=== PATIENT | female | born 1985 | race Caucasian/White ===

== ENCOUNTER 2018-07-21 14:07 | Outpatient (REF) | payer BC, SELFPAY | END 2018-07-21 14:27 | LOC: NCHCN 14:07 | PROVIDERS: PCP Physician Assistant Medical; Visit Provider Specialist/Technologist Athletic Trainer | DX: N39.0 Urinary tract infection, site not specified (principal) | CPT/HCPCS: 87086 ==

== ENCOUNTER 2019-07-11 12:59 | Outpatient (REF) | payer BC, SELFPAY ==
--- NOTE | 2019-07-11 10:30 | PAPFT_PTH ---
PATIENT: Abimbola Callahan LOC: [facility] U#:[id number] AGE/SX: 33/F ROOM: RE07/11/[address]: Niki Mcknight : 1985 BED: DIS: 07/11/2019 SPEC #: [id number] RECD: 07/12/19 12:51 STATUS: MARIO REAkbar #: [id number] INOCENCIO: 07/11/19 10:[address]: Niki Mcknight DEPT: [facility] Cytology RECD BY: Ariela Mcneal Tissues: 1 - CX/ENDOCX FOR PAP SMEARS Procedures: PAP THIN PREP/UVM Screening HPV DNA PROBE Comments: [id number]
== END 2019-07-11 13:19 ==
LOC: NCHCN 12:59
PROVIDERS: PCP Physician Assistant Medical; Visit Provider Physician Assistant Medical
DX: Z12.4 Encounter for screening for malignant neoplasm of cervix (principal); Z11.51 Encounter for screening for human papillomavirus (HPV)
CPT/HCPCS: 88142; 87624

== ENCOUNTER 2021-07-10 18:52 | Outpatient (REF) | payer BC, SELFPAY ==
[2021-07-10 20:40] LABS: Abs Immature Grans 0.02 10^3/uL (0.0-0.06); Absolute Basophil Count 0.04 10^3/uL (0.0-0.2); Absolute Eosinophil Count 0.17 10^3/uL (0.0-0.7); Absolute Lymphocyte Count 1.85 10^3/uL (1.2-3.4); Absolute Monocyte Count 0.56 10^3/uL (0.1-0.8); Absolute Neutrophil Count 3.77 10^3/uL (1.2-6.7); Basophils % 0.6; Eosinophils % 2.7; HCT 36.3 % (36.0-46.0); HGB 12.1 g/dL (11.2-15.7); Immature Grans % 0.3; Lymphocytes % 28.9; MCH 29.8 pg (27.0-33.0); MCHC 33.3 % (32.0-36.0); MCV 89.4 fL (80-95); MPV 10.8 fL (8.0-11.0); Monocytes % 8.7; Neutrophils % 58.8; Nucleated RBC 0 %; Platelet Count 232 10^3/uL (130-400); RBC 4.06 10^6/uL (3.93-5.22); RDW 11.9 % (11.7-14.6); WBC 6.41 10^3/uL (4.4-10.8)
[2021-07-10 20:47] LABS: ALT 19 U/L (14-59); AST 17 U/L (15-37); Alkaline Phosphatase 80 U/L (46-116); Anion Gap 11.1 mmol/L (3-11); BUN 14 mg/dL (7-18); Bilirubin, Total 0.3 mg/dL (0.2-1.0); CO2 23.9 mmol/L (21.0-32.0); CREATININE 0.7 mg/dL (0.55-1.02); Calcium 8.7 mg/dL (8.5-10.1); Chloride 104 mmol/L (98-107); Glucose 79 mg/dL (74-106); Potassium 4.1 mmol/L (3.5-5.1); Sodium 139 mmol/L (136-145); Total Protein 7.1 g/dL (6.4-8.2)
== END 2021-07-10 18:53 | disposition home or self-care (01) ==
LOC: NCHCN 18:52
PROVIDERS: PCP Physician Assistant Medical; Visit Provider Physician Assistant Medical
DX: R10.31 Right lower quadrant pain (principal)
CPT/HCPCS: 80053; 85025

== ENCOUNTER 2021-10-09 01:08 | Outpatient (CLI) | payer BC, SELFPAY ==
[2021-10-09] MEDS: Breeza Beverage 473 ML BTL PO (12:32)
[2021-10-09] MEDS: Omnipaque 350 MG/ML 50 ML BTL IJ (12:32)
[2021-10-09] MEDS: Omnipaque 350 MG/ML 100 ML BTL IJ (13:55)
[2021-10-09] MEDS: Normal Saline Flush 10 ML SYR IVP (13:57)
--- NOTE | 2021-10-09 14:05 | DI.CT_ITS ---
Exam(s) CT ABDOMEN PELVIS W EXAM: CT ABDOMEN PELVIS W CLINICAL HISTORY: RLQ PAIN R10.31 TECHNIQUE: Imaging Protocol: Axial computed tomography images with coronal and sagittal reformatted images were created and reviewed CONTRAST MATERIAL: Intravenous: Omnipaque 350 Contrast volume:100 mL Oral: Yes COMPARISON: No exams were available for comparison FINDINGS: ABDOMEN: Lung Bases: There is a calcified granuloma in the lingula. Liver: Normal density. No measurable mass. Portal, Superior Mesenteric, and Splenic Veins: Unremarkable. Gallbladder and Biliary Tract: No radiodense calculus or dilation. Pancreas: Normal density, no abnormal calcifications or inflammatory process. Spleen: Normal. Adrenals: No masses seen. Kidneys: Normal size, contour and axis. There is a 3 mm nonobstructing stone in the midpole of the le ft kidney. No masses seen. Abdominal Aorta: Abdominal portion non-dilated. Bowel: No obstruction or bowel wall thickening. Appendix is unremarkable. Peritoneal Cavity: No ascites, collection or mesenteric inflammatory response. No free air. Lymph Nodes: Within normal limits. Bones: Within normal limits for the patient's age. There is a single sclerotic focus in the left yuni tabulum likely reflecting a bone island. Soft Tissues: Unremarkable. PELVIS: Bladder: Symmetric distention, no gross wall thickening. Reproductive Organs: Unremarkable as visualized. Bilateral ovarian cysts are seen. The largest is on the left and measures 2.1 x 2.0 cm. Lymph Nodes: Within normal limits. Bones: Within normal limits for the patient's age. IMPRESSION: 1. Normal appendix. 2. Left nephrolithiasis. No hydronephrosis. 3. Bilateral ovarian cysts. RADIATION DOSE DELIVERED: 622.02mGy.cm Total DLP DATA REPOSITORY: All CT scans at this facility are submitted to the National Radiology Data Registry (NRDR) Dose Index Registry (DIR) with the [employer] (ACR). RADIATION OPTIMIZATION: All CT scans at this facility use at least one of these dose optimization te chniques: automated exposure control; mA and/or kV adjustment per patient size (includes targeted exa ms where dose is matched to clinical indication); or iterative reconstruction.
== END 2021-10-09 01:28 ==
PROVIDERS: PCP Physician Assistant Medical; Visit Provider Physician Assistant Medical
DX: R10.31 Right lower quadrant pain (principal); N20.0 Calculus of kidney; N83.291 Other ovarian cyst, right side; N83.292 Other ovarian cyst, left side
CPT/HCPCS: 74177; J3490; Q9967

== ENCOUNTER 2023-04-08 14:47 | Emergency (ER) | payer OTHER, SELFPAY ==
[2023-04-08 14:48] VITALS: BP 119/87; PULSE 89; RESP 17; TEMP 36.7; O2SAT 98
--- NOTE | 2023-04-08 15:00 | DI.CT_ITS ---
Exam(s) CT ABDOMEN PELVIS W EXAM: CT ABDOMEN PELVIS W CLINICAL HISTORY: right lower abdominal pain TECHNIQUE: Imaging Protocol: Axial computed tomography images with coronal and sagittal reformatted images were created and reviewed CONTRAST MATERIAL: Intravenous: Omnipaque 350 Contrast volume:77 mL Oral: None. COMPARISON: CT CT ABDOMEN PELVIS W from 10/09/2021 FINDINGS: ABDOMEN: Lung Bases: Calcified granuloma. No focal consolidating infiltrates. Liver: Normal density. No measurable mass. Portal, Superior Mesenteric, and Splenic Veins: Unremarkable. Gallbladder and Biliary Tract: There does appear to be a stone in the gallbladder. No biliary ductal dilatation. Pancreas: Normal density, no abnormal calcifications or inflammatory process. Spleen: Normal. Adrenals: No masses seen. Kidneys: Normal size, contour and axis. There is a 2 mm calcification in the lower pole of the left k idney. No masses seen. Abdominal Aorta: Abdominal portion non-dilated. Bowel: No obstruction or bowel wall thickening. Appendix is unremarkable. There is a moderate amount of stool in the colon. Peritoneal Cavity: There is a trace amount of free fluid in the pelvis which is likely physiologic. No free air. Lymph Nodes: Within normal limits. Bones: Within normal limits for the patient's age. Soft Tissues: Unremarkable. PELVIS: Bladder: Symmetric distention, no gross wall thickening. Reproductive Organs: Unremarkable as visualized. There is a 3.4 cm left ovarian cyst. There is a 1.4 cm corpus luteal cyst. No imaging is recommended. (Calzada et al, 2020). Lymph Nodes: Within normal limits. Bones: Within normal limits for the patient's age. IMPRESSION: 1. Left nephrolithiasis no hydronephrosis. 2. Normal appendix. RADIATION DOSE DELIVERED: 595.66mGy.cm Total DLP DATA REPOSITORY: All CT scans at this facility are submitted to the National Radiology Data Registry (NRDR) Dose Index Registry (DIR) with the [employer] (ACR). RADIATION OPTIMIZATION: All CT scans at this facility use at least one of these dose optimization te chniques: automated exposure control; mA and/or kV adjustment per patient size (includes targeted exa ms where dose is matched to clinical indication); or iterative reconstruction.
--- NOTE | 2023-04-08 15:05 | ED.GENADUL_ITS ---
Discharge Plan Disposition Patient Disposition: Home Condition: Stable Discharge Details Clinical Impression: Pelvic pain Primary Care Provider: Niki Mcknight ED Provider: Jose Rivera Home Meds and New Rx's Prescriptions: Continued Daily Multiple 1 EACH tablet 1 ea PO DAILY Patient Comments: No longer taking 04/08/23 CT phenazopyridine 95 MG tablet 2 tab-cap PO TID PRN Patient Comments: No longer taking 04/08/23 CT levothyroxine 75 MCG tablet 75 mcg PO DAILY Qty: 60 1RF Patient Comments: No longer taking 04/08/23 CT Rx Instructions: 1 tab PO daily Discharge Instructions Additional Instructions: Your blood work did not show concerning findings, you do have a left sided ovarian cyst If you develop severe worsening pain, feel more ill, or have new symptoms such as difficulty breathing return to the emergency department [phone], I placed you on the follow up list as well to help with this. Medical Decision Making 37 yo female who states she has had 2 c sections and surgery to remove an ovarian cyst in the past, and has been worked up for possible endometriosis, who comes in with lower abdominal pain right greater then left since Thursday that is constant and sharp in nature. She denies fevers, chills, n/v. She arrives stable and appears in no distress. She has a soft nondistended abdomen, has tenderness in both the llq and rlq with the rlq being more tender, no guarding or rebound tenderness. Unclear etiology for her pain based on symptoms, given location of her pain will proceed with cbc, cmp, lipase as well as ct abdomen/pelvis to evaluate for appendicitis, diverticulitis, ovarian cyst. Pain has been constant since Thursday so doubt torsion. pt stable, has a left sided 3x2cm simple functional cyst, normal appendix and no other acute findings. She feels better, has right sided pain still, she does state she has a hx of endometriosis so her pain on the right side could be due to this and given no significant left sided pain doubt torsion. She is stable for d/c, will have her f/u with [facility] [employer], return precautions given Differential Diagnosis Differential Diagnosis: appendicitis, endometriosis, ovarian cyst Medical Records Medical records reviewed: Yes I reviewed the patient's medical records. Imaging Data Radiologic Study: Attestation: I personally reviewed and interpreted this imaging study as follows: Imaging: CT Scan Radiologist's impression: IMPRESSION: 1. New 3.1 x 2.7 cm simple appearing left adnexal cyst, consistent with a benign functional cyst. No further imaging is recommended. (Reference: Zheng) 2. New corpus luteal cyst within the left adnexa. 3. Normal appearing appendix. No evidence for bowel obstruction or inflammation. 4. Interval passage of a prior left renal stone. There is a residual nonobstructing 2 mm left renal stone. Lab Data Lab results reviewed: Yes I reviewed the patient's lab results. HPI General Mode of arrival: ambulatory . Date/Time Provider Initiated Documentation: 04/08/23 14:50 . Limitations to Documentation: no limitations . Information obtained by: patient . History of Present Illness 37 year old F presents to the emergency department with the chief complaint of lower abdominal pain, described as moderate, Quality is described as sharp, and is localized to the abdomen. Patient reports no radiation. Patient started experiencing this day(s) (4) and it has been constant. No relieving factors improve symptom(s), No exacerbating factors reported . Patient notes no other symptoms.; denies chest pain and fever/chills. Patient did receive the following treatments prior to arrival, NSAID Related Data Home Medications Medication Instructions Recorded Confirmed multivitamin-ferrous 1 ea PO DAILY 01/30/14 09/17/21 fumarate-folic acid 18 mg-400 mcg tablet (Daily Multiple) phenazopyridine 95 mg tablet 2 tab-cap PO TID PRN 07/04/16 09/17/21 levothyroxine 75 mcg tablet 75 mcg PO DAILY #60 tabs 07/28/17 09/17/21 Previous Rx's Medication Instructions Recorded levothyroxine 75 mcg tablet 75 mcg PO DAILY #60 tabs 07/28/17 Allergies Allergy/AdvReac Type Severity Reaction Status Date / Time venom-honey bee Allergy Severe SWELLING Unverified 04/08/23 15:40 General Stated Complaint: Abd Prob ESTELLE: 3 Review of Systems All systems reviewed & are unremarkable except as noted in HPI and below Constitutional Constitutional: Denies chills, Denies fever(s) and Denies weakness Cardiovascular Cardiovascular: Denies chest pain and Denies dyspnea Respiratory Respiratory: Denies cough and Denies dyspnea Gastrointestinal Gastrointestinal: Denies nausea and Denies vomiting Genitourinary Genitourinary: Denies dysuria Neurologic Neurologic: Denies weakness PFSH All Active Problems (Updated 04/08/23 @ 17:31 by Jose Rivera MD) Pelvic pain (Acute) Medical History Endometriosis Headache Had episode with 1st . 10/09/14 tension type headache after n/v. Rx for Ondansetron and refill of Fioricet given. Surgical History section 03/12/2011. F. Breech presentation. OVARIAN [id number] RIGHT HAND TENDON REPAIR 2001 WISDOME TEETH 2006 Social History Smoking/Tobacco Use Status: Never Smoking risk assessment performed?: Yes Alcohol Intake: never Drug use: Never Substance use type: does not use Do you feel safe at home: Yes Do you feel safe in your relationship?: Yes Exam Const General: no acute distress Orientation: alert HENMT Head: normal to inspection Ears: external ears normal General nose exam: external nose normal Mouth: moist mucous membranes Eyes General: appearance normal, both eyes and all related structures Neck Neck: normal visual inspection Resp Effort & Inspection: normal respiratory effort and able to speak in complete sentences Cardio Rate: regular rate GI Palpation: soft and tender Skin General skin exam: no rashes or lesions noted Neuro General: patient alert and patient oriented x3 Extrem General: normal to inspection Psych Mental Status: mental status grossly normal Course Vital Signs Vital signs: Vital Signs Temperature 36.7 C 04/08/23 14:48 Pulse 89 04/08/23 14:48 Respiratory Rate 17 04/08/23 14:48 Blood Pressure 119/87 04/08/23 14:48 Pulse Oximetry 98 04/08/23 14:48 Temperature 36.7 C 04/08/23 14:48 Temperature Source Temporal Artery Scan 04/08/23 14:48 Pulse 89 04/08/23 14:48 Respiratory Rate 17 04/08/23 14:48 Respiratory Effort Normal 04/08/23 14:53 Blood Pressure 119/87 04/08/23 14:48 Blood Pressure Position Sitting 04/08/23 14:48 Pulse Oximetry 98 04/08/23 14:48 Oxygen Delivery Method Room Air 04/08/23 14:48 Oxygen Flow Rate 0 04/08/23 14:48 Pain Level 9 04/08/23 14:48
[2023-04-08 15:21] LABS: Bilirubin Negative (Negative); Blood Small (Negative); Clarity Clear (Clear); Glucose Negative (Negative); Ketones Negative (Negative); Leukocyte Esterase Negative (Negative); Nitrite Negative (Negative); Specific Gravity <= 1.005 (1.005-1.025); Urobilinogen 0.2 mg/dL (Up to 0.2); pH 5.5 (5-8)
[2023-04-08] MEDS: Ketorolac 15 MG/ML VIAL IVP (15:22)
[2023-04-08 15:27] LABS: Abs Immature Grans 0.02 10^3/uL (0.0-0.06); Absolute Basophil Count 0.02 10^3/uL (0.0-0.2); Absolute Eosinophil Count 0.11 10^3/uL (0.0-0.7); Absolute Lymphocyte Count 1.52 10^3/uL (1.2-3.4); Absolute Monocyte Count 0.55 10^3/uL (0.1-0.8); Absolute Neutrophil Count 5.07 10^3/uL (1.2-6.7); Basophils % 0.3; Eosinophils % 1.5; HCT 40.7 % (36.0-46.0); HGB 13.9 g/dL (11.2-15.7); Immature Grans % 0.3; Lymphocytes % 20.9; MCH 29.7 pg (27.0-33.0); MCHC 34.2 % (32.0-36.0); MCV 87 fL (80-95); MPV 9.3 fL (8.0-11.0); Monocytes % 7.5; Neutrophils % 69.5; Platelet Count 254 10^3/uL (130-400); RBC 4.68 10^6/uL (3.93-5.22); RDW 12.1 % (11.7-14.6); RDW-SD 38.8 fL; WBC 7.29 10^3/uL (4.4-10.8)
[2023-04-08 15:32] LABS: Bacteria Negative HPF (Negative); C & S Indicated? No; Casts Negative LPF (Negative); Crystals Negative HPF (Negative); Epithelial Cells Few HPF (Negative); Mucus Negative (Negative); RBC 0-2 HPF (0-2)
[2023-04-08 15:40] LABS: ALT 21 U/L (14-59); AST 21 U/L (15-37); Albumin 4.2 g/dL (3.4-5.0); Alkaline Phosphatase 87 U/L (46-116); BUN 9 mg/dL (7-18); Bilirubin, Total 0.5 mg/dL (0.2-1.0); CREATININE 0.7 mg/dL (0.55-1.02); Calcium 9.4 mg/dL (8.5-10.1); Chloride 102 mmol/L (98-107); Estimated GFR 114.88 (mL/min/1.73m2); Glucose 100 mg/dL (74-106); Lipase 40 U/L (16-77); Potassium 3.4 mmol/L (3.5-5.1); Sodium 137 mmol/L (136-145); Total Protein 8.1 g/dL (6.4-8.2)
[2023-04-08] MEDS: Normal Saline - Diluent 50 ML VIAL IJ (16:19)
[2023-04-08] MEDS: Omnipaque 350 MG/ML 100 ML BTL IJ (16:21)
--- NOTE | 2023-04-08 17:16 | DI.VRAD_ITS ---
PROCEDURE INFORMATION: Exam: CT Abdomen And Pelvis With Contrast Exam date and time: 04/08/2023 4:23 PM Age: 37 years old Clinical indication: Other: Right lower abd pain; Additional info: Patient has had two c sections. No other surgery's to abd/pel mentioned TECHNIQUE: Imaging protocol: Computed tomography of the abdomen and pelvis with contrast. Contrast material: 350; Contrast volume: 77 ml; Contrast route: INTRAVENOUS (IV); COMPARISON: CT ABDOMEN PELVIS W 10/09/2021 2:00 PM FINDINGS: Liver: Normal. No mass. Gallbladder and bile ducts: Normal. No calcified stones. No ductal dilation. Pancreas: Normal. No ductal dilation. Spleen: Normal. No splenomegaly. Adrenal glands: Normal. No mass. Kidneys and ureters: There is a 2 mm nonobstructing left renal stone on image 370, series 5, without change. There was another slightly larger left renal stone on prior study which is no longer present. Stomach and bowel: Unremarkable. No obstruction. No mucosal thickening. Appendix: The appendix is well visualized and appears normal. Intraperitoneal space: There is a trace amount of free fluid in the pelvis, likely physiologic. There is no free intraperitoneal air. Vasculature: Unremarkable. No abdominal aortic aneurysm. Lymph nodes: Unremarkable. No enlarged lymph nodes. Urinary bladder: Unremarkable as visualized. Reproductive: There is a new 3.1 x 2.7 cm simple appearing cystic lesion within the left adnexa on image 67, series 4, likely a benign functional cyst. There is a new 1.4 x 1.3 cm rim enhancing cystic left adnexal lesion on image 643, series 5, consistent with a corpus luteal cyst. Bones/joints: Unremarkable. No acute fracture. Soft tissues: Unremarkable. IMPRESSION: 1. New 3.1 x 2.7 cm simple appearing left adnexal cyst, consistent with a benign functional cyst. No further imaging is recommended. (Reference: Zheng) 2. New corpus luteal cyst within the left adnexa. 3. Normal appearing appendix. No evidence for bowel obstruction or inflammation. 4. Interval passage of a prior left renal stone. There is a residual nonobstructing 2 mm left renal stone. REFERENCES: Zheng et al. Management of Incidental Adnexal Findings on CT and MRI: A White Paper of the ACR Incidental Findings Committee, J Am Lizy Radiol. 2019;17(2):248-254. Dictated and Authenticated by: Alexei Galdamez MD. Ordering:TAN Garcia MD
--- NOTE | 2023-04-08 17:42 | NUR.NOTE ---
Nursing Note: [facility] this [facility].
== END 2023-04-08 17:48 | disposition home or self-care (01) ==
PROVIDERS: Emergency Provider Emergency Medicine; PCP Physician Assistant Medical
DX: R10.2 Pelvic and perineal pain (principal)
CPT/HCPCS: 36415; 80053; 81025; 83690; 96374; 99284; 74177; 81003; 81015; 85025; J1885; J3490

== ENCOUNTER 2025-06-27 16:00 | Outpatient (REF) | payer BC, SELFPAY ==
--- NOTE | 2025-06-27 15:00 | PAPFT_PTH ---
PATIENT: Abimbola Callahan LOC: [facility] U#:[id number] AGE/SX: 39/F ROOM: RE06/27/[address]: Niki Mcknight : 1985 BED: DIS: 06/27/2025 SPEC #: [id number] RECD: 06/28/25 12:40 STATUS: MARIO LAMBERT #: [id number] INOCENCIO: 06/27/25 15:[address]: Niki Mcknight DEPT: [facility] Cytology RECD BY: Ariela Mcneal Tissues: 1 - CX/ENDOCX FOR PAP SMEARS Procedures: PAP THIN PREP/UVM Screening HPV DNA PROBE Comments: [id number] (HPV 16 & 18/45)
[2025-06-27 19:47] LABS: TSH (W/Ref FT4) 2.45 uIU/mL (0.36-3.74)
== END 2025-06-27 16:01 | disposition home or self-care (01) ==
LOC: LBN 16:00
PROVIDERS: PCP Physician Assistant Medical; Visit Provider Physician Assistant Medical
DX: Z12.4 Encounter for screening for malignant neoplasm of cervix (principal); Z01.419 Encounter for gynecological examination (general) (routine) without abnormal findings; N92.6 Irregular menstruation, unspecified
CPT/HCPCS: 88142; 84443; 87624